=== PATIENT | female | born 1945 | race Caucasian/White ===

== ENCOUNTER → 2018-12-01 | Outpatient (CLI) | payer MEDICARE, OTHER ==
[2018-12-01 10:38] LABS: AADO2 Arterial 26.5 mmHg (7.0-24.0); Allen Test ACCEPTAB; Arterial Base Excess -0.6 mmol/L (-3.0-3); Arterial Blood Gas Oxygen Sat 94.6 mmHG (95.0-100.0); Arterial COHb 0.3 % (0.0-3.0); Arterial Fraction of Oxyhgb 94.3 % (93.0-99.0); Arterial MetHb 0 % (0.0-1.5); Arterial pCO2 39.6 mmhg (35-45); MODE ROOM AIR; Site Right Radial
== END | disposition home or self-care (01) ==
LOC: PUL 09:29
DX: E11.9 Type 2 diabetes mellitus without complications (principal); I10 Essential (primary) hypertension; E78.5 Hyperlipidemia, unspecified; E66.9 Obesity, unspecified; R06.02 Shortness of breath
CPT/HCPCS: 36600; 82803; 94010; 94726; 94729